=== PATIENT | female | born 1970 | race Caucasian/White ===

== ENCOUNTER 2016-09-21 12:12 | Emergency (ER) | payer MEDICARE, OTHER ==
[~2016-09-21] VITALS: Ht 165.1 cm; Wt 81.2 kg
[~2016-09-21 12:12] MED LIST: CIPR500T94 PO; METH10TA2 PO
[2016-09-21 12:14] VITALS: BP 153/96
--- NOTE | 2016-09-21 12:58 | PHYS DOC ---
Past Medical History Past Medical History: Anxiety, High Cholesterol, Hypertension Past Surgical History: Hysterectomy, Other Additional Past Surgical Histo: Bladder sling, right ankle ORIF Additional Information: /2 ppd Alcohol Use: Occasionally Drug Use: None, Methamphetamine, Other Social History Narrative: clean since January 31, 2016 Adult General Chief Complaint Chief Complaint: LOWEREXTREMITY INJURY [facility] HPI Patient is a 46 year old female presents emergency Department with complaint of right ankle and lower leg injury that occurred approximately an hour prior to arrival. Patient states that she had an open grate on the floor of her house that she been cleaning. She states that she was distracted and forgot that she did not recover the whole. She states that she fell through this. She denies striking her head or loss of consciousness. Patient denies knee injury. She reports that she has had a previous ORIF to the right ankle. She denies numbness or tingling. She cannot remember the last time she had a tetanus shot. Review of Systems Review of Systems Constitutional: Denies fever or chills [] Eyes: Denies change in visual acuity, redness, or eye pain [] HENT: Denies nasal congestion or sore throat [] Respiratory: Denies cough or shortness of breath [] Cardiovascular: No additional information not addressed in HPI [] GI: Denies abdominal pain, nausea, vomiting, bloody stools or diarrhea [] : Denies dysuria or hematuria [] Musculoskeletal: Denies back pain or joint pain [] Integument: Denies rash or skin lesions [] Neurologic: Denies headache, focal weakness or sensory changes [] Endocrine: Denies polyuria or polydipsia [] Current Medications Current Medications Current Medications Medications (Trade) Dose Ordered Sig/[facility] Start Time Stop Time Status Last Admin Dose Admin Acetaminophen/ Hydrocodone Bitart (Lortab 5/325) 1 tab 1X ONCE 09/21/16 13:00 09/21/16 13:01 DC 09/21/16 12:55 1 TAB Allergies Allergies Allergies Coded Allergies Type Severity Reaction Last Updated Verified Latex, Natural Rubber Allergy Severe Rash 01/30/15 Yes Physical Exam Physical Exam Constitutional: Well developed, well nourished, mild distress, non-toxic appearance. HENT: Normocephalic, atraumatic, bilateral external ears normal, oropharynx moist, no oral exudates, nose normal. [] Eyes: PERRLA, EOMI, conjunctiva normal, no discharge. [] Neck: Normal range of motion, no tenderness, supple, no stridor. [] Cardiovascular:Heart rate regular rhythm, no murmur [] Lungs & Thorax: Bilateral breath sounds clear to auscultation [] Abdomen: Bowel sounds normal, soft, no tenderness, no masses, no pulsatile masses. [] Skin: Warm, dry, no erythema, no rash. [] Back: No tenderness, no CVA tenderness. [] Extremities: Right knee is normal in appearance and nontender palpation. Right lower leg shows an approximately 3.5 cm contusion with overlying abrasion the mid shaft of the tibia. There is focal area of tenderness to palpation. Right ankle is essentially normal in appearance. There are surgical scar to the medial malleolus. Patient complains of pain in this area. There is no palpable instability or crepitus in this area. Right foot is normal in appearance with exception of a small abrasion to the right great toe. Patient has no complaints of foot pain upon palpation. Foot is neurovascular intact with capillary refill less than 2 seconds. Neurologic: Alert and oriented X 3, normal motor function, normal sensory function, no focal deficits noted. [] Psychologic: Affect normal, judgement normal, mood normal. [] Current Patient Data Vital Signs Vital Signs Date Time Temp Pulse Resp B/P Pulse Ox O2 Delivery O2 Flow Rate FiO2 09/21/16 12:55 Room Air 09/21/16 12:14 97.9 107 20 153/96 100 97.9 EKG EKG [] Radiology/Procedures Radiology/Procedures [facility] [address] [place], [place] [id number] IMAGING REPORT Signed PATIENT: TRISHA SANDOVAL ACCOUNT: [id number] : 1970 LOCATION: ER AGE: 46 SEX: F EXAM [id number] STATUS: REG ER ORD. PHYSICIAN: JIAN HORAN REASON: pain after fall-prev ORIF to RIGHT ankle PROCEDURE: ANKLE RIGHT 3V; TIBIA FIBULA RIGHT Right right tibia/fibula and right ankle radiographs History: Right lower leg pain after fall today into a hole, previous ORIF of right ankle. Comparison: Right ankle radiographs 02/04/2013. Findings: AP and lateral views of the right tibia and fibula. Including right ankle radiographs, entirety of the right tibia and fibula were imaged. No acute fracture or dislocation is identified. Distal tibia demonstrates presence of the 2 fixation screws. AP, lateral, and oblique views of the right ankle. No acute fracture or dislocation is identified. 2 fixation screws are seen involving the distal fibula. There is heterotopic calcification seen involving the distal interosseous membrane. Mild degenerative changes are seen involving the tibiotalar joint. Impression: No acute osseous traumatic injury identified in the right ankle or right tibia and fibula. DICTATED and SIGNED BY: MONSE MCGREGOR MD DATE: 09/21/16 1322 CC: JIAN HORAN; NO PCP ~ Course & Med Decision Making Course & Med Decision Making Pertinent Labs and Imaging studies reviewed. (See chart for details) [] Dragon Disclaimer Dragon Disclaimer This electronic medical record was generated, in whole or in part, using a voice recognition dictation system. Departure Departure Impression: Primary Impression: Contusion Additional Impression: Abrasion Disposition: 01 HOME, SELF-CARE Condition: GOOD Referrals: NO PCP (PCP) Patient Instructions: Abrasion, [id number], Contusion, [id number], Diphtheria Toxoid; Tetanus Toxoid Adsorbed, DT, Td Additional Instructions: 1. The x-rays of your lower leg and ankle show no evidence of injury from your accident here today. 2. Review the discharge instructions provided for self-care and reasons to return to the emergency department. 3. Be sure to call your primary care doctor in the morning to schedule follow- up appointment for reevaluation. Scripts Hydrocodone/Apap 5-325 ([place] 5-325 Tablet)1 Each Tablet1 Tab PO PRN Q6HRS PRN PAIN #15 TAB Ref 0 Prov:JIAN HORAN 09/21/16 Problem Qualifiers JIAN HORAN Sep 21, 2016 12:58
[2016-09-21] MEDS ORDERED: HYDROCODONE/APAP 5/325MG TABLET. PO ONE (13:00)
--- NOTE | 2016-09-21 13:27 | RAD ---
Right right tibia/fibula and right ankle radiographs History: Right lower leg pain after fall today into a hole, previous ORIF of right ankle. Comparison: Right ankle radiographs 02/04/2013. Findings: AP and lateral views of the right tibia and fibula. Including right ankle radiographs, entirety of the right tibia and fibula were imaged. No acute fracture or dislocation is identified. Distal tibia demonstrates presence of the 2 fixation screws. AP, lateral, and oblique views of the right ankle. No acute fracture or dislocation is identified. 2 fixation screws are seen involving the distal fibula. There is heterotopic calcification seen involving the distal interosseous membrane. Mild degenerative changes are seen involving the tibiotalar joint. Impression: No acute osseous traumatic injury identified in the right ankle or right tibia and fibula.
[2016-09-21] MEDS ORDERED: HYDR-971 PO (13:41)
[2016-09-21] MEDS ORDERED: DIPHTH,PERTUSS(ACELL),TET TOX 0.5 ML DISP.SYRIN. VAX IM ONE (13:45)
== END 2016-09-21 14:07 | disposition home or self-care (01) ==
LOC: ER 12:12
DX: S80.11XA Contusion of right lower leg, initial encounter (principal); E78.00 Pure hypercholesterolemia, unspecified; F41.9 Anxiety disorder, unspecified; I10 Essential (primary) hypertension; Z90.710 Acquired absence of both cervix and uterus; F15.10 Other stimulant abuse, uncomplicated; Z91.040 Latex allergy status; W19.XXXA Unspecified fall, initial encounter; Y93.89 Activity, other specified; Y92.89 Other specified places as the place of occurrence of the external cause; Y99.8 Other external cause status
CPT/HCPCS: 73590; 73610; 90471; 90715; 99284-25

== ENCOUNTER 2017-02-17 22:04 | Emergency (ER) | payer MEDICARE, OTHER ==
[~2017-02-17 22:04] MED LIST changes: +HYDR-971 PO
[2017-02-17 22:17] VITALS: BP 152/90
[2017-02-17] MEDS ORDERED: NAPR500T PO (22:23)
[2017-02-17] MEDS ORDERED: CYCL10TA2 PO (22:23)
--- NOTE | 2017-02-17 22:24 | PHYS DOC ---
Past Medical History Past Medical History: Anxiety, High Cholesterol, Hypertension Past Surgical History: Hysterectomy, Other Additional Past Surgical Histo: Bladder sling, right ankle ORIF Alcohol Use: Occasionally Drug Use: None, Methamphetamine, Other Adult General Chief Complaint Chief Complaint: UPPER EXTREMITY PAIN [facility] HPI Patient is a 46 year old female presents to the emergency department with intermittent left upper extremity pain for 3 months. Patient states that she has pain with range of motion and the pain is generally by ibuprofen. She states the last 2 days it seems of gotten worse. She is unsure as if she has done something on the job to injure the upper extremity. She has no loss of function, no numbness or tingling. She denies chest pain, neck pain, headache, nausea, vomiting, abdominal pain. Review of Systems Review of Systems Constitutional: Denies fever or chills [] Eyes: Denies change in visual acuity, redness, or eye pain [] HENT: Denies nasal congestion or sore throat [] Respiratory: Denies cough or shortness of breath [] Cardiovascular: No additional information not addressed in HPI [] GI: Denies abdominal pain, nausea, vomiting, bloody stools or diarrhea [] : Denies dysuria or hematuria [] Musculoskeletal: Left Upper extremity pain Integument: Denies rash or skin lesions [] Neurologic: Denies headache, focal weakness or sensory changes [] Endocrine: Denies polyuria or polydipsia [] Allergies Allergies Allergies Coded Allergies Type Severity Reaction Last Updated Verified Latex, Natural Rubber Allergy Severe Rash 01/30/15 Yes Physical Exam Physical Exam Constitutional: Well developed, well nourished, no acute distress, non-toxic appearance. [] HENT: Normocephalic, atraumatic, bilateral external ears normal, oropharynx moist, no oral exudates, nose normal. [] Eyes: PERRLA, EOMI, conjunctiva normal, no discharge. [] Neck: Normal range of motion, no tenderness, supple, no stridor. [] Cardiovascular:Heart rate regular rhythm, no murmur [] Lungs & Thorax: Bilateral breath sounds clear to auscultation [] Abdomen: Bowel sounds normal, soft, no tenderness, no masses, no pulsatile masses. [] Skin: Warm, dry, no erythema, no rash. [] Back: No tenderness, no CVA tenderness. [] Extremities: No tenderness to palpate over the left trapezius. She states this reproduces the discomfort that she's been experiencing. Her muscle strength is 5 over 5, DTRs 2 over 4. Neurologic: Alert and oriented X 3, normal motor function, normal sensory function, no focal deficits noted. [] Psychologic: Affect normal, judgement normal, mood normal. [] EKG EKG [] Radiology/Procedures Radiology/Procedures [] Course & Med Decision Making Course & Med Decision Making Pertinent Labs and Imaging studies reviewed. (See chart for details) [] Dragon Disclaimer Dragon Disclaimer This electronic medical record was generated, in whole or in part, using a voice recognition dictation system. Departure Departure Impression: Primary Impression: Trapezius muscle strain Disposition: HOME, SELF-CARE Condition: STABLE Referrals: NO PCP (PCP) [facility] Patient Instructions: Muscle Strain Scripts Cyclobenzaprine Hcl (CYCLOBENZAPRINE HCL) 10 Mg Tablet 10 MG PO TID, #30 TAB Prov: ELLI SANTIAGO APRN 02/17/17 Naproxen (NAPROSYN) 500 Mg Tablet 500 MG PO BID Y for PAIN, #20 TAB Prov: ELLI SANTIAGO APRN 02/17/17 Problem Qualifiers Primary Impression: Trapezius muscle strain Encounter type: initial encounter Laterality: left Qualified Codes: S46.812A - Strain of other muscles, fascia and tendons at shoulder and upper arm level, left arm, initial encounter ELLI SANTIAGO APRN Feb 17, 2017 22:23
[2017-02-17] MEDS ORDERED: ORPHENADRINE CITRATE 60 MG/2 ML VIAL. IM ONE (22:30)
== END 2017-02-17 23:05 | disposition home or self-care (01) ==
LOC: ER 22:04
DX: S46.812A Strain of other muscles, fascia and tendons at shoulder and upper arm level, left arm, initial encounter (principal); I10 Essential (primary) hypertension; E78.00 Pure hypercholesterolemia, unspecified; F41.9 Anxiety disorder, unspecified; Z91.040 Latex allergy status; X58.XXXA Exposure to other specified factors, initial encounter; Y93.89 Activity, other specified; Y99.8 Other external cause status; Y92.89 Other specified places as the place of occurrence of the external cause
CPT/HCPCS: 96372; 99283; J2360

== ENCOUNTER 2018-02-26 22:40 | Emergency (ER) | payer MEDICARE, OTHER ==
[~2018-02-26] VITALS: Ht 165.1 cm; Wt 81.2 kg
[~2018-02-26 22:40] MED LIST changes: +CYCL10TA2 PO; +NAPR-683 PO
[2018-02-26 22:45] VITALS: BP 126/75
[2018-02-26] MEDS ORDERED: PRED50TA PO (23:15)
--- NOTE | 2018-02-26 23:15 | PHYS DOC ---
Past Medical History Past Medical History: Anxiety, High Cholesterol, Hypertension Past Surgical History: Hysterectomy, Other Additional Past Surgical Histo: Bladder sling, right ankle ORIF Alcohol Use: Occasionally Drug Use: None, Methamphetamine, Other Adult General Chief Complaint Chief Complaint: ALLERGIC REACTION HPI HPI Patient is a 47 year old female who presents to the ER with complaints of a sting to her left hand, index finger that happened approximately 1 hour ago. Pt states she is allergic to bees and she is unsure of what stung her. She complains of warmth, redness, swelling, itching, and pain to left index finger. She denies any difficulty breathing, swallowing, SOA, or wheezing. Currently she rates her discomfort as a 10 out of 10 on the pain scale, she did not take any medication prior to coming to the ER. Review of Systems Review of Systems Constitutional: Denies fever or chills [] HENT: Denies nasal congestion or sore throat [] Respiratory: Denies cough, wheezing, or shortness of breath [] Musculoskeletal: Denies joint pain [] Integument: reports erythema, swelling, and itching to left index finger from sting Neurologic: Denies headache, focal weakness or sensory changes [] All other systems were reviewed and found to be within normal limits, except as documented in this note. Current Medications Current Medications Current Medications Medications (Trade) Dose Ordered Sig/[facility] Start Time Stop Time Status Last Admin Dose Admin Diphenhydramine HCl (Benadryl) 50 mg 1X ONCE 02/26/18 23:30 02/26/18 23:30 DC 02/26/18 23:18 50 MG Prednisone (Prednisone) 50 mg 1X ONCE 02/26/18 23:30 02/26/18 23:30 DC 02/26/18 23:18 50 MG Allergies Allergies Allergies Coded Allergies Type Severity Reaction Last Updated Verified Latex, Natural Rubber Allergy Severe Rash 01/30/15 Yes Physical Exam Physical Exam Constitutional: Well developed, well nourished, no acute distress, non-toxic appearance. [] HENT: Normocephalic, atraumatic, bilateral external ears normal, oropharynx moist, no oral exudates, nose normal. [] Eyes: PERRLA, conjunctiva normal, no discharge. [] Neck: Normal range of motion, no tenderness, supple, no stridor. [] Cardiovascular:Heart rate regular rhythm, no murmur [] Lungs & Thorax: Bilateral breath sounds clear to auscultation [] Skin: Warm, dry; L index finger noted to be erythematous, warm, and swollen, consistent with allergic reaction to insect sting, however there is no visible punctum site from insect sting noted. Extremities: No tenderness, no cyanosis, no clubbing, ROM intact, 1+ edema noted to left index finger Neurologic: Alert and oriented X 3, normal motor function, normal sensory function, no focal deficits noted. [] Psychologic: Affect normal, judgement normal, mood normal. [] Current Patient Data Vital Signs Vital Signs Date Time Temp Pulse Resp B/P (MAP) Pulse Ox O2 Delivery O2 Flow Rate FiO2 02/26/18 22:45 97.8 95 18 126/75 (92) 99 Room Air 97.8 EKG EKG [] Radiology/Procedures Radiology/Procedures [] Course & Med Decision Making Course & Med Decision Making Pertinent Labs and Imaging studies reviewed. (See chart for details) Dx: allergic reaction to insect sting Pt was given 50 mg of benadryl and 50 mg of prednisone PO in the ER. She was encouraged to apply cool compresses for comfort. Prescription for prednisone 50 mg tablers #4 written and pt was encouraged to continue taking benadryl ever 6- 8 hours as needed for itching. Patient verbalized an understanding of home care , medications, follow-up, and return to ED instructions and was in agreement with the plan of care. [] Dragon Disclaimer Dragon Disclaimer This electronic medical record was generated, in whole or in part, using a voice recognition dictation system. Departure Departure Impression: Primary Impression: Allergic reaction to insect sting Disposition: 01 HOME, SELF-CARE Condition: STABLE Referrals: NO PCP (PCP) Patient Instructions: Insect Bite, [id number] Additional Instructions: Fill the prescription and use as directed. You may take benadryl every 6-8 hours as needed for itching. Follow up with your doctor next week, return to the ER if symptoms worsen. Scripts Prednisone (PREDNISONE) 50 Mg Tablet 1 TAB PO DAILY, #4 TAB Prov: OBIE SOTO APRN 02/26/18 Problem Qualifiers Primary Impression: Allergic reaction to insect sting Encounter type: initial encounter Injury intent: accidental or unintentional Qualified Codes: T63.481A - Toxic effect of venom of other arthropod, accidental (unintentional), initial encounter OBIE SOTO APRN Feb 26, 2018 23:15
[2018-02-26] MEDS ORDERED: diphenhydrAMINE HCL 25 MG CAPSULE PO ONE (23:30)
[2018-02-26] MEDS ORDERED: predniSONE 20 MG TABLET PO ONE (23:30)
== END 2018-02-26 23:25 | disposition home or self-care (01) ==
LOC: ER 22:40
DX: T63.481A Toxic effect of venom of other arthropod, accidental (unintentional), initial encounter (principal); T78.40XA Allergy, unspecified, initial encounter; I10 Essential (primary) hypertension; E78.00 Pure hypercholesterolemia, unspecified; Z91.030 Bee allergy status; Z91.040 Latex allergy status; Y92.89 Other specified places as the place of occurrence of the external cause
CPT/HCPCS: 99283; J7512; Q0163

== ENCOUNTER 2018-03-01 19:00 | Emergency (ER) | payer MEDICARE, OTHER ==
[~2018-03-01] VITALS: Ht 165.1 cm; Wt 77.1 kg
[~2018-03-01 19:00] MED LIST changes: +PRED50TA PO
[2018-03-01 19:25] VITALS: BP 128/86
[2018-03-01] MEDS ORDERED: DICL50TA4 PO (20:02)
[2018-03-01] MEDS ORDERED: CYCL10TA2 PO (20:02)
[2018-03-01] MEDS ORDERED: NAPROXEN 500 MG TABLET PO STA (20:03)
--- NOTE | 2018-03-01 20:03 | PHYS DOC ---
Past Medical History Past Medical History: Anxiety, High Cholesterol, Hypertension Past Surgical History: Hysterectomy, Other Additional Past Surgical Histo: Bladder sling, right ankle ORIF Alcohol Use: Occasionally Drug Use: None, Methamphetamine, Other Adult General Chief Complaint Chief Complaint: LOWER EXT PAIN [facility] HPI Patient is a 47 year old female with history of hypertension, high cholesterol , anxiety, who presents today complaining of pain to the right lateral thigh that began a couple hours ago. Patient states she got stung by a bee couple days ago and was concerned this pain could be related to the bee sting. She was seen in the Ed after the bee sting to the left index finger and was discharged on prednisone for a couple days. Patient denies any anaphylactic reaction type symptoms. She states her pain is worse when walking. Review of Systems Review of Systems Constitutional: Denies fever or chills [] Eyes: Denies change in visual acuity, redness, or eye pain [] HENT: Denies nasal congestion or sore throat [] Respiratory: Denies cough or shortness of breath [] Cardiovascular: No additional information not addressed in HPI [] GI: Denies abdominal pain, nausea, vomiting, bloody stools or diarrhea [] : Denies dysuria or hematuria [] Musculoskeletal: right thigh pain] Integument: bee sting to the left index finger Neurologic: Denies headache, focal weakness or sensory changes [] Endocrine: Denies polyuria or polydipsia [] All other systems were reviewed and found to be within normal limits, except as documented in this note. Allergies Allergies Allergies Coded Allergies Type Severity Reaction Last Updated Verified Latex, Natural Rubber Allergy Severe Rash 01/30/15 Yes Physical Exam Physical Exam Constitutional: Well developed, well nourished, no acute distress, non-toxic appearance. [] HENT: Normocephalic, atraumatic, bilateral external ears normal, oropharynx moist, no oral exudates, nose normal. [] Eyes: PERRLA, EOMI, conjunctiva normal, no discharge. [] Neck: Normal range of motion, no tenderness, supple, no stridor. [] Cardiovascular:Heart rate regular rhythm, no murmur [] Lungs & Thorax: Bilateral breath sounds clear to auscultation [] Abdomen: Bowel sounds normal, soft, no tenderness, no masses, no pulsatile masses. [] Skin: Warm, dry, left distal index finger ventral aspect with slight erythema no signs of infection. Neurovascular exam intact. Back: No tenderness, no CVA tenderness. [] Extremities: No tenderness, no cyanosis, no clubbing, ROM intact, no edema. [] Neurologic: Alert and oriented X 3, normal motor function, normal sensory function, no focal deficits noted. [] Psychologic: Affect normal, judgement normal, mood normal. [] EKG EKG [] Radiology/Procedures Radiology/Procedures [] Course & Med Decision Making Course & Med Decision Making Pertinent Labs and Imaging studies reviewed. (See chart for details) This is a 47-year-old female patient presenting to the ED today with musculoskeletal pain on the right lateral thigh that she believes could come from a bee sting to the left index finger a couple days ago. Physical exam of the left index finger is negative for any acute findings. The affected area on the right lateral thigh has no signs of infection, pain appears musculoskeletal , there is normal, co-relation between the bee sting to the left index finger and her current pain. Patient finished prednisone. Discharged with prescription for diclofenac as needed for her pain. Also given cyclobenzaprine. Follow-up with her own PCP as needed. Dragon Disclaimer Dragon Disclaimer This electronic medical record was generated, in whole or in part, using a voice recognition dictation system. Departure Departure Impression: Primary Impression: Musculoskeletal pain Disposition: 01 HOME, SELF-CARE Condition: STABLE Referrals: NO PCP (PCP) Follow-up with your doctor in one week Patient Instructions: Musculoskeletal Pain Additional Instructions: You were evaluated in the emergency room for musculoskeletal pain. Take the prescribed medications as needed. Follow-up with your doctor in 1-2 weeks as needed. Scripts Cyclobenzaprine Hcl (CYCLOBENZAPRINE HCL) 10 Mg Tablet 1 TAB PO TID, #30 TAB Prov: ENZO NARAYAN APRN 03/01/18 Diclofenac Sodium (DICLOFENAC SODIUM) 50 Mg Tablet. 1 TAB PO BID, #30 TAB 0 Refills Prov: ENZO NARAYAN APRN 03/01/18 ENZO NARAYAN APRN Mar 01, 2018 20:03
[2018-03-01] MEDS ORDERED: CYCLOBENZAPRINE 10 MG TABLET. PO ONE (20:15)
[2018-03-01] MEDS ORDERED: HYDROcodone/APAP 5/325MG 1 TAB TABLET PO ONE (20:15)
== END 2018-03-01 20:16 | disposition home or self-care (01) ==
LOC: ER 19:00
DX: M79.651 Pain in right thigh (principal); L53.8 Other specified erythematous conditions; I10 Essential (primary) hypertension; E78.00 Pure hypercholesterolemia, unspecified; F41.9 Anxiety disorder, unspecified; Z90.710 Acquired absence of both cervix and uterus; Z91.040 Latex allergy status
CPT/HCPCS: 99284

== ENCOUNTER 2018-08-09 02:13 | Emergency (ER) | payer MEDICARE, OTHER ==
[~2018-08-09] VITALS: Ht 165.1 cm; Wt 77.1 kg
[~2018-08-09 02:13] MED LIST changes: +DICL50TA4 PO; +HYDR-3164 PO; -HYDR-971 PO
[2018-08-09 02:16] VITALS: BP 116/84
--- NOTE | 2018-08-09 03:15 | RAD ---
Indication:ANKLE PAIN AFTER FALL TECHNIQUE: 3 views of the left ankle COMPARISON:None FINDINGS/ impression: No acute fracture or dislocation. Ankle mortise is intact. Electronically signed by: Royal Wolfe DO (08/09/2018 3:11 AM) [facility]
[2018-08-09] MEDS ORDERED: TRAM-48 PO (03:33)
--- NOTE | 2018-08-09 03:33 | PHYS DOC ---
Past Medical History Past Medical History: Anxiety, High Cholesterol, Hypertension, Kidney Stone Additional Past Medical Histor: ENDOMETRIOSIS Past Surgical History: Hysterectomy, Other Additional Past Surgical Histo: Bladder sling, right ankle ORIF Alcohol Use: None Drug Use: None, Methamphetamine, Other Adult General Chief Complaint Chief Complaint: LOWER EXT PAIN HPI HPI 48-year-old female presents with a chief complaint of ankle pain. Patient states this evening she injured her left ankle when she stepped into a hole in the floor. Patient states she was lifting up her heater to dust states when she accidentally stepped into the hole injuring her left ankle. Am patient's pain is along the left lateral malleolus. There is no deformities noted. Patient pulses are intact. Patient arrived via EMS. Review of Systems Review of Systems Constitutional: Denies fever or chills [] Eyes: Denies change in visual acuity, redness, or eye pain [] HENT: Denies nasal congestion or sore throat [] Respiratory: Denies cough or shortness of breath [] Cardiovascular: No additional information not addressed in HPI [] GI: Denies abdominal pain, nausea, vomiting, bloody stools or diarrhea [] : Denies dysuria or hematuria [] Musculoskeletal: Left ankle pain Integument: Denies rash or skin lesions [] Neurologic: Denies headache, focal weakness or sensory changes [] Endocrine: Denies polyuria or polydipsia [] All other systems were reviewed and found to be within normal limits, except as documented in this note. Allergies Allergies Allergies Coded Allergies Type Severity Reaction Last Updated Verified Latex, Natural Rubber Allergy Severe Rash 01/30/15 Yes Physical Exam Physical Exam Constitutional: Well developed, well nourished, no acute distress, non-toxic appearance. [] HENT: Normocephalic, atraumatic, bilateral external ears normal, oropharynx moist, no oral exudates, nose normal. [] Eyes: PERRLA, EOMI, conjunctiva normal, no discharge. [] Neck: Normal range of motion, no tenderness, supple, no stridor. [] Cardiovascular:Heart rate regular rhythm, no murmur [] Lungs & Thorax: Bilateral breath sounds clear to auscultation [] Abdomen: Bowel sounds normal, soft, no tenderness, no masses, no pulsatile masses. [] Skin: Warm, dry, no erythema, no rash. [] Back: No tenderness, no CVA tenderness. [] Extremities: No tenderness, no cyanosis, no clubbing, no edema. [Tenderness along the lateral malleolus on the left. There is no deformities noted. No pain at the base of the fifth. Distal pulses intact] Neurologic: Alert and oriented X 3, normal motor function, normal sensory function, no focal deficits noted. [] Psychologic: Affect normal, judgement normal, mood normal. [] Current Patient Data Vital Signs Vital Signs Date Time Temp Pulse Resp B/P (MAP) Pulse Ox O2 Delivery O2 Flow Rate FiO2 08/09/18 02:16 98.1 108 20 116/84 (95) 99 Room Air 98.1 EKG EKG [] Radiology/Procedures Radiology/Procedures [] Impressions: X-ray interpreted by radiologist no acute fractures of the ankle Course & Med Decision Making Course & Med Decision Making Pertinent Labs and Imaging studies reviewed. (See chart for details) [] Dragon Disclaimer Dragon Disclaimer This electronic medical record was generated, in whole or in part, using a voice recognition dictation system. Departure Departure Impression: Primary Impression: Ankle sprain Disposition: HOME, SELF-CARE Condition: STABLE Referrals: NO PCP (PCP) Patient Instructions: Ankle Sprain Scripts Tramadol Hcl (ULTRAM) 50 Mg Tablet 50 MG PO Q6HRS PRN for PAIN, #10 TAB 0 Refills Prov: MEKA JASON DO 08/09/18 MEKA JASON DO Aug 09, 2018 03:33
== END 2018-08-09 03:48 | disposition home or self-care (01) ==
LOC: ER 02:13
DX: S93.402A Sprain of unspecified ligament of left ankle, initial encounter (principal); E78.00 Pure hypercholesterolemia, unspecified; I10 Essential (primary) hypertension; W17.2XXA Fall into hole, initial encounter; Z91.040 Latex allergy status; Y93.89 Activity, other specified; Y92.89 Other specified places as the place of occurrence of the external cause; Y99.8 Other external cause status
CPT/HCPCS: 73610; 99283

== ENCOUNTER 2021-04-05 19:52 | Emergency (ER) | payer OTHER ==
[~2021-04-05] VITALS: Ht 165.1 cm; Wt 81.3 kg
[~2021-04-05 19:52] MED LIST changes: +CYCL10TA19 PO; -CYCL10TA2 PO; +METH-572 PO; -METH10TA2 PO; +TRAM-48 PO
[2021-04-05] MEDS ORDERED: KETOROLAC 15 MG/ML VIAL. IVP ONE (20:00)
[2021-04-05] MEDS ORDERED: METOCLOPRAMIDE HCL 10 MG/2 ML VIAL. IVP ONE (20:00)
[2021-04-05] MEDS ORDERED: IV NORMAL SALINE 1000ML BAG 1,000 ML IV ONE (20:00)
--- NOTE | 2021-04-05 20:10 | PHYS DOC ---
Past Medical History Past Medical History: Anxiety, High Cholesterol, Hypertension, Kidney Stone Additional Past Medical Histor: ENDOMETRIOSIS Past Surgical History: Hysterectomy, Other Additional Past Surgical Histo: Bladder sling, right ankle ORIF Smoking Status: Current Every Day Smoker Alcohol Use: None Drug Use: None, Methamphetamine, Other General Adult EDM: Chief Complaint: FLANK PAIN HPI: HPI: Patient is a 50-year-old female with a past medical history of kidney stones presenting by EMS with left flank pain that radiates to her lower left abdomen that began today. Reports the pain as dull, intermittent and sharp at times and a 10/10 currently. Reports an episode of diarrhea and also chills today without fever. She denies any recent dysuria, hematuria or nausea/vomiting. She cannot tell me any aggravating or alleviating factors. She denies having taken any pain medication before arrival. Patient states she has been fully vaccinated for Covid, and has had no recent known exposures. Review of Systems: Review of Systems: Constitutional: Denies fever; reports chills HENT: Denies nasal congestion or sore throat Respiratory: Denies cough or shortness of breath Cardiovascular: Denies chest pain or palpitations GI: Denies nausea or vomiting : Denies dysuria or hematuria Musculoskeletal: Denies joint pain; reports left back/flank pain Integument: Denies rash or skin lesions Neurologic: Denies headache, focal weakness or sensory changes Complete systems were reviewed and found to be within normal limits, except as documented in this note. Heart Score: C/O Chest Pain: N/A Current Medications: Current Medications Medications (Trade) Dose Ordered Sig/Yesica Start Time Stop Time Status Last Admin Dose Admin Ketorolac Tromethamine (Toradol 15mg Vial) 15 mg 1X ONCE 04/05/21 20:00 04/05/21 20:01 UNV Metoclopramide HCl (Reglan Vial) 10 mg 1X ONCE 04/05/21 20:00 04/05/21 20:01 UNV Sodium Chloride 1,000 ml @ 1,000 mls/hr 1X ONCE 04/05/21 20:00 04/05/21 20:59 UNV Allergies: Allergies: Allergies Coded Allergies Type Severity Reaction Last Updated Verified Latex, Natural Rubber Allergy Severe Rash 01/30/15 Yes Physical Exam: PE: Constitutional: Well developed, well nourished, non-toxic appearance, tremulous throughout HENT: Normocephalic, atraumatic Eyes: Conjunctiva normal, no discharge Neck: Normal range of motion, supple Lungs & Thorax: No respiratory distress, equal chest rise and fall, tachycardic Abdomen: Soft, tenderness to palpation in left lower quadrant, no rebound or guarding Skin: Warm, dry, no rash Back: No tenderness, CVA tenderness on L Extremities: No tenderness, no edema Neurologic: Alert and oriented X 3, no focal deficits noted Psychologic: Affect normal, judgment normal Radiology/Procedures: Radiology/Procedures: PROCEDURE: CT ABDOMEN PELVIS WO CONTRAST INDICATION: Reason: left flank pain eval for kidney stone / Spl. Instructions: / History: COMPARISON: February 2015 TECHNIQUE: Axial CT images were obtained through the abdomen and pelvis without intravenous contrast. One or more of the following individualized dose reduction techniques were utilized for this examination: 1. Automated exposure control; 2. Adjustment of the mA and/or kV according to patient size; 3. Use of iterative reconstruction technique. FINDINGS: Vascular: Mild scattered calcific atherosclerosis. Hepatobiliary: Postcholecystectomy. Pancreas: No peripancreatic edema. Spleen: Calcified granulomas. Renal/Bladder: Left-sided hydronephrosis and hydroureter with perinephric edema. There are some nonobstructive left renal stones. 4 mm left distal ureter stone. Urinary bladder is partially distended. No right-sided hydronephrosis. Gastrointestinal: No periappendiceal inflammatory changes. Small amount haziness the fat adjacent to the dome of the urinary bladder. There is a couple of prominent loops of small bowel at the left-sided the abdomen but no high-grade transition point. Degenerative changes the spine with multilevel central canal and neural foraminal stenosis. IMPRESSION: * Left-sided hydronephrosis and hydroureter with perinephric and periureteral edema with left distal ureter stone. Electronically signed by: Jaguar Chávez MD (04/05/2021 9:07 PM) [id number] Course & Med Decision Making: Course & Med Decision Making Pertinent Labs and Imaging studies reviewed. (See chart for details) Patient is a 50-year-old female with past medical history of kidney stones presenting per EMS for left flank pain that began today. She is tachycardic and tremulous on exam, but afebrile. 1 L normal saline ordered, along with with IV Toradol and Reglan with improvement in patient's pain. CBC demonstrated leukocytosis greater than 21. CT ABD/pelvis demonstrated left-sided hydronephrosis and hydroureter with perinephric and periureteral edema with left distal ureter stone. Urine likely infectious with leukocyte esterase, nitrates, and WBCs. We discussed the option for transfer to a facility with urology, along with the risks and benefits of admission/discharge. She reports that she r equests going home and understands the strict return precautions should her symptoms worsen. Prescription for keflex given for 10 days due to the complicated UTI and prescriptions for flomax, zofran, and norco. Patient stable for discharge with outpatient follow-up with PCP. Discussed findings and plan with patient, who acknowledges understanding and agreement. Joshua Disclaimer: Joshua Disclaimer: This electronic medical record was generated, in whole or in part, using a voice recognition dictation system. Departure Departure Impression: Primary Impression: Kidney stone on left side Additional Impression: Complicated UTI (urinary tract infection) Disposition: HOME / SELF CARE / HOMELESS Condition: STABLE Referrals: NO PCP (PCP) Patient Instructions: Diet for Kidney Stones, Kidney Stones, [id number], Urinary Tract Infection, [id number] Scripts Cephalexin (KEFLEX) 500 Mg Capsule 1 CAP PO TID for 10 Days, #30 CAP Prov: MONSE MUNROE DO 04/05/21 Tamsulosin Hcl (FLOMAX) 0.4 Mg Cap.er.24h 1 CAP PO DAILY, #10 CAP Prov: MONSE MUNROE DO 04/05/21 Ondansetron (ONDANSETRON ODT) 4 Mg Tab.rapdis 1 TAB PO PRN Q6-8HRS PRN for NAUSEA, #16 TAB Prov: MONSE MUNROE DO 04/05/21 Hydrocodone/Acetaminophen (Hydrocodone-Acetamin 5-325 mg) 1 Each Tablet 0.5-1 EACH PO Q6HRS PRN for PAIN, #10 TAB Prov: MONSE MUNROE DO 04/05/21 MONSE MUNROE DO Apr 05, 2021 20:10
[2021-04-05 20:44] LABS: BASO # 0.1 x10^3/uL (0.0-0.2); BASO % 0 % (0-3); EOS % 0 % (0-3); HEMATOCRIT 43.1 % (36.0-47.0); HEMOGLOBIN 14.7 g/dL (12.0-15.5); LYMPH # 1.3 x10^3/uL (1.0-4.8); LYMPH % 6 % (24-48); MEAN CORPUSCULAR HEMOGLOBIN 30 pg (25-35); MEAN CORPUSCULAR HGB CONC 34 g/dL (31-37); MEAN CORPUSCULAR VOLUME 88 fL (79-100); MONO # 0.4 x10^3/uL (0.0-1.1); MONO % 2 % (0-9); NEUT # 19.8 x10^3/uL (1.8-7.7); NEUT % 92 % (31-73); PLATELET COUNT 432 x10^3/uL (140-400); RED BLOOD COUNT 4.89 x10^6/uL (3.50-5.40); RED CELL DISTRIBUTION WIDTH 13.2 % (11.5-14.5); WHITE BLOOD COUNT 21.7 x10^3/uL (4.0-11.0)
[2021-04-05 20:45] LABS: BILIRUBIN,URINE NEGATIVE (NEG); CLARITY,URINE CLOUDY; COLOR,URINE AMBER; NITRITE,URINE POSITIVE (NEG); PH,URINE 5.5 (<5.0-8.0); PROTEIN,URINE 30 mg/dL (NEG-TRACE); UROBILINOGEN,URINE 0.2 mg/dL (0.2 mg/dL)
[2021-04-05 21:01] LABS: BACTERIA,URINE MANY /HPF (0-FEW); RBC,URINE TNTC /HPF (0-2)
--- NOTE | 2021-04-05 21:09 | RAD ---
INDICATION: Reason: left flank pain eval for kidney stone / Spl. Instructions: / History: COMPARISON: February 2015 TECHNIQUE: Axial CT images were obtained through the abdomen and pelvis without intravenous contrast. One or more of the following individualized dose reduction techniques were utilized for this examinat ion: 1. Automated exposure control; 2. Adjustment of the mA and/or kV according to patient size; 3 . Use of iterative reconstruction technique. FINDINGS: Vascular: Mild scattered calcific atherosclerosis. Hepatobiliary: Postcholecystectomy. Pancreas: No peripancreatic edema. Spleen: Calcified granulomas. Renal/Bladder: Left-sided hydronephrosis and hydroureter with perinephric edema. There are some nonob structive left renal stones. 4 mm left distal ureter stone. Urinary bladder is partially distended. N o right-sided hydronephrosis. Gastrointestinal: No periappendiceal inflammatory changes. Small amount haziness the fat adjacent to the dome of the urinary bladder. There is a couple of prominent loops of small bowel at the left-sided the abdomen but no high-grade t ransition point. Degenerative changes the spine with multilevel central canal and neural foraminal stenosis. IMPRESSION: * Left-sided hydronephrosis and hydroureter with perinephric and periureteral edema with left dista l ureter stone. Electronically signed by: Jaguar Chávez MD (04/05/2021 9:07 PM) [id number]
[2021-04-05] MEDS ORDERED: TAMSULOSIN 0.4 MG CAP.ER.24H. PO ONE (21:30)
[2021-04-05 21:43] LABS: CALCIUM 9.4 mg/dL (8.5-10.1); CREATININE 1.1 mg/dL (0.6-1.0); POTASSIUM 4.2 mmol/L (3.5-5.1)
[2021-04-05 21:48] LABS: ALBUMIN 3.4 g/dL (3.4-5.0); ALBUMIN/GLOBULIN RATIO 0.8 (1.0-1.7); MAGNESIUM 1.5 mg/dL (1.8-2.4); TOTAL BILIRUBIN 0.3 mg/dL (0.2-1.0); TOTAL PROTEIN 7.5 g/dL (6.4-8.2)
[2021-04-05] MEDS ORDERED: cefTRIAXone IV Push 1 GM VIAL. IVP ONE (22:00)
[2021-04-05 22:06] VITALS: BP 134/87
[2021-04-05] MEDS ORDERED: CEPH500C PO (22:26)
[2021-04-05] MEDS ORDERED: TAMS0.4C97 PO (22:26)
[2021-04-05] MEDS ORDERED: HYDR-2759 PO (22:26)
[2021-04-05] MEDS ORDERED: ONDA4TAB12 PO (22:26)
[2021-04-05] MEDS ORDERED: ONDANSETRON PF 4 MG/2 ML VIAL. IVP ONE (23:00)
[2021-04-05] MEDS ORDERED: HYDROcodone/APAP 5/325MG 1 TAB TABLET PO ONE (23:00)
== END 2021-04-05 22:35 | disposition home or self-care (01) ==
LOC: ER 19:52
DX: N39.0 Urinary tract infection, site not specified (principal); N13.2 Hydronephrosis with renal and ureteral calculous obstruction; F41.9 Anxiety disorder, unspecified; E78.00 Pure hypercholesterolemia, unspecified; I10 Essential (primary) hypertension; F17.200 Nicotine dependence, unspecified, uncomplicated; Z87.442 Personal history of urinary calculi; Z90.710 Acquired absence of both cervix and uterus; Z91.040 Latex allergy status
CPT/HCPCS: 36415; 74176; 80053; 81001; 83690; 83735; 85025; 87077; 87086; 87186; 96361; 96374; 96375; 99285; J0696; J1885; J2405; J2765; J7030